=== PATIENT | male | born 1985 | race Caucasian/White ===

== ENCOUNTER 2024-06-13 01:03 | Emergency (ER) | payer MEDICAID ==
[~2024-06-13] VITALS: Ht 182.9 cm; Wt 106.6 kg
[2024-06-13 02:20] VITALS: BP 131/93; TEMP 98.5; O2SAT 98
== END 2024-06-13 03:20 | disposition left against medical advice (07) ==
LOC: ER 01:07
DX: K92.1 Melena (principal); Z53.21 Procedure and treatment not carried out due to patient leaving prior to being seen by health care provider